=== PATIENT | female | born 1955 ===

== ENCOUNTER 2016-12-13 07:13 | Day surgery (SDC) | payer BC ==
[2016-12-07 09:38] VITALS: BMI 22.3
[2016-12-13] MEDS ORDERED: Propofol 10 mg/ml Inj (20 ML) ONE ×2 (08:33→08:49)
[2016-12-13] MEDS ORDERED: Sodium Chloride 0.9% 1,000 ML IV SCH (09:15)
[2016-12-13 11:55] VITALS: BP 114/84; PULSE 69; RESP 16; TEMP 97.8; O2SAT 100
== END 2016-12-13 12:14 | disposition home or self-care (01) ==
LOC: ENDO 07:13
PROVIDERS: ATTEND Internal Medicine Gastroenterology
DX: Z12.11 Encounter for screening for malignant neoplasm of colon (principal); K63.5 Polyp of colon; K64.4 Residual hemorrhoidal skin tags; K64.8 Other hemorrhoids; I10 Essential (primary) hypertension; E11.9 Type 2 diabetes mellitus without complications; Z79.84 Long term (current) use of oral hypoglycemic drugs
CPT/HCPCS: 45380; 82948; 88305; J2704; J7040 ×2

== ENCOUNTER 2017-04-06 19:29 | Emergency (ER) | payer BC ==
[2017-04-06 19:29] VITALS: BMI 22.3
[2017-04-06 19:57] VITALS: TEMP 99.4
--- NOTE | 2017-04-06 20:23 | ED PDOC ---
Arrival/HPI - General Chief Complaint: Flu-like Symptoms Time Seen by Provider: 04/06/17 20:18 - History of Present Illness Narrative History of Present Illness (Text): 62 y/o F c PMHx bronchitis, DM, HTN, HLD p/w cough x 12 days. Seen by PMD, finished course of Levofloxacin, saw PMD again, on Day 2 now of Z pack. Continues to have symptoms. +rhinorrhea (yellow) and pleuritic chest pain from coughing. Has had to strain a little harder to urinate but denies dysuria. Tmax 101 intermittently. Denies chills, dyspnea, nausea, vomiting, diarrhea, numbness , weakness, rash, recent travel. Past Medical History - Infectious Disease Hx of Infectious Diseases: None - Cardiac Hx Cardiac Disorders: Yes Hx Hypertension: Yes Hx Pacemaker: No - Pulmonary Hx Respiratory Disorders: No - Neurological Hx Neurological Disorder: No Hx Paralysis: No - HEENT Hx HEENT Disorder: Yes Other/Comment: glasses - Renal Hx Renal Disorder: No - Endocrine/Metabolic Hx Endocrine Disorders: Yes Hx Diabetes Mellitus Type 2: Yes (NIDD) - Hematological/Oncological Hx Blood Disorders: No Hx Blood Transfusions: No Hx Blood Transfusion Reaction: No - Integumentary Hx Dermatological Disorder: No - Musculoskeletal/Rheumatological Hx Musculoskeletal Disorders: No - Gastrointestinal Hx Gastrointestinal Disorders: No - Genitourinary/Gynecological Hx Genitourinary Disorders: No - Psychiatric Hx Emotional Abuse: No Hx Physical Abuse: No Hx Substance Use: No - Surgical History Hx Hysterectomy: Yes Other/Comment: 2 lumpectomies - Anesthesia Hx Anesthesia: Yes Hx Anesthesia Reactions: No Hx Malignant Hyperthermia: No - Suicidal Assessment Feels Threatened In Home Enviroment: No Family/Social History Family/Social History: No Known Family HX Smoking Status: Light Smoker < 10 Cigarettes Daily Hx Alcohol Use: No Hx Substance Use: No Allergies/Home Meds Allergies/Adverse Reactions: Allergies aspirin Allergy (Verified 04/06/17 19:52) SWELLING Penicillins Allergy (Verified 04/06/17 19:52) SWELLING BANDAID TAPE Allergy (Uncoded 04/06/17 19:52) RASH Home Medications: Home Meds Medication Instructions Recorded Confirmed Ascorbic Acid [Vitamin C] 1,000 mg PO DAILY 12/07/16 04/06/17 Atorvastatin [Lipitor] 20 mg PO QPM 12/07/16 04/06/17 Candesartan Cilexetil [Atacand] 16 mg PO DAILY 12/07/16 04/06/17 Cholecalciferol (Vitamin D3) 1,000 unit PO DAILY 12/07/16 04/06/17 [Vitamin D3] Colesevelam HCl [Welchol] 3 tab PO BID 12/07/16 04/06/17 Magnesium Oxide [Magnesium] 400 mg PO BID 12/07/16 04/06/17 MetFORMIN [glucOPHAGE] 1,000 mg PO BID 12/07/16 04/06/17 Multivitamin/Iron/Folic Acid 1 tab PO DAILY 12/07/16 04/06/17 [Centrum Women Tablet] Ubidecarenone [Co Q-10] 200 mg PO QPM 12/07/16 04/06/17 [id number] Ethyl Esters 1 GM 1 mg PO DAILY 04/06/17 04/06/17 [Lovaza] Review of Systems - Physician Review All systems were reviewed & negative as marked: Yes - Review of Systems Respiratory: absent: SOB Gastrointestinal: absent: Vomiting Physical Exam - Physical Exam Narrative Physical Exam (Text): Gen: NAD Head: NC/AT, no sinus tenderness. Eyes: PERRL ENT: MMM, no phyarngeal erythema or exudates. Chest: Reproducible tenderness of thoracic chest and back. CV: Regular rate. Lungs: CTA b/l Abd: Soft, nontender, BS X 4 Pelvis: Stable Extremities: No tenderness or swelling Lymph: No adenopathy. Neuro: Alert, no focal deficit Vital Signs Temp Pulse Resp BP Pulse Ox 04/06/17 19:53 99.4 F 104 H 19 119/77 96 Medical Decision Making ED Course and Treatment: CXR to rule out pneumonia Continue antibiotics. Toradol, IVF. 04/06/17 22:49 CXR no consolidation. Will discharge, f/u PMD, return to ED for worsening breathing, pain, fever, or any other problem. - Lab Interpretations Lab Results: 04/06/17 20:40 04/06/17 20:40 Lab Results 04/06/17 20:52: Urine Color Yellow, Urine Appearance Clear, Urine pH 6.0, Ur Specific Harper >= 1.030, Urine Protein Negative, Urine Glucose (UA) Negative, Urine Ketones Trace H, Urine Blood Negative, Urine Nitrate Negative, Urine Bilirubin Negative, Urine Urobilinogen 0.2, Ur Leukocyte Esterase Negative 04/06/17 20:40: Sodium 139, Potassium 4.1, Chloride 107, Carbon Dioxide 24, Anion Gap 13, BUN 13, Creatinine 0.6 L, Est GFR ( Amer) > 60, Est GFR ( Non-Af Amer) > 60, Random Glucose 122 H, Calcium 9.5, Total Bilirubin 0.4, AST 33, ALT 30, Alkaline Phosphatase 53, Total Protein 7.0, Albumin 4.1, Globulin 2.9, Albumin/Globulin Ratio 1.4 04/06/17 20:40: Influenza Typ A,B (EIA) Negative for flu a/b 04/06/17 20:40: WBC 6.9, RBC 4.50, Hgb 14.2, Hct 42.1, MCV 93.6, MCH 31.6, MCHC 33.7, RDW 13.2, Plt Count 173, MPV 9.0, Gran % 60.6, Lymph % (Auto) 20.6 L, [place] % (Auto) 17.7 H, Eos % (Auto) 1.0 L, Baso % (Auto) 0.1, Gran # 4.18, Lymph # 1.4, [place] # 1.2 H, Eos # 0.1, Baso # 0.01 - RAD Interpretation Radiology Orders: 04/06/17 20:24 CHEST TWO VIEWS (PA/LAT) [RAD] Stat - Medication Orders Current Medication Orders: Discontinued Medications Acetaminophen (Tylenol 325mg Tab) 650 mg PO STAT STA Stop: 04/06/17 20:28 Last Admin: 04/06/17 21:12 Dose: 650 mg MAR Pain/Vitals Document 04/06/17 21:12 SS (Rec: 04/06/17 21:12 SS [id number]) Pain Reassessment Is This A Pain ReAssessment? Yes Sleep Is patient sleeping during reassessment? No Presence of Pain Presence of Pain Yes Pain Scale Used Pain Scale Used Numeric Location Pain Location Body Site Back Sodium Chloride (Sodium Chloride 0.9%) 1,000 mls @ 999 mls/hr IV .Q1H1M STA Stop: 04/06/17 21:24 Last Admin: 04/06/17 21:12 Dose: 999 mls/hr eMAR Start Stop Document 04/06/17 21:12 SS (Rec: 04/06/17 21:12 [id number]) Intravenous Solution Start Date 04/06/17 Start Time 21:12 End Date 04/06/17 End time 22:13 Total Infusion Time 61 Disposition/Present on Arrival - Present on Arrival Any Indicators Present on Arrival: No History of DVT/PE: No History of Uncontrolled Diabetes: No Urinary Catheter: No History of Decub. Ulcer: No History Surgical Site Infection Following: None - Disposition Have Diagnosis and Disposition been Completed?: Yes Diagnosis: Influenza-like illness Disposition: HOME/ ROUTINE Disposition Time: 22:45 Patient Plan: Discharge Condition: STABLE Discharge Instructions (ExitCare): Viral Syndrome (ED) Referrals: Jessica Kim MD [Primary Care Provider] - Follow up with primary Forms: [employer] (Green[place]ic)
[2017-04-06] MEDS ORDERED: Sodium Chloride 0.9% 1,000 ML IV STA (20:24)
[2017-04-06 20:52] LABS: BASO # 0.01 K/mm3 (0.0-2.0); BASO % 0.1 % (0.0-3.0); EOS # 0.1 (0.0-0.7); GRAN # 4.18 (1.4-6.5); GRAN % 60.6 % (50.0-68.0); HEMOGLOBIN 14.2 g/dL (12.0-16.0); LYMPH # 1.4 (1.2-3.4); LYMPH % 20.6 % (22.0-35.0); MEAN CELL VOLUME 93.6 fl (80.0-105.0); MEAN CORPUSCULAR HEMOGLOBIN 31.6 pg (25.0-35.0); MEAN CORPUSCULAR HGB CONC 33.7 g/dl (31.0-37.0); MONO # 1.2 (0.1-0.6); MONO % 17.7 % (1.0-6.0); RBC 4.5 10^6/uL (3.5-6.1); RED CELL DISTRIBUTION WIDTH 13.2 % (11.5-14.5); WHITE BLOOD COUNT 6.9 10^3/ul (4.5-11.0)
[2017-04-06 21:01] LABS: ALB/GLOB RATIO 1.4 (1.1-1.8); ALBUMIN 4.1 g/dL (3.0-4.8); ALT/SGPT 30 U/L (7-56); AST/SGOT 33 U/L (14-36); BLOOD UREA NITROGEN 13 mg/dL (7-21); CALCIUM 9.5 mg/dL (8.4-10.5); GFR AFRICAN-AMERICAN > 60; GFR NON-AFRICAN AMERICAN > 60
[2017-04-06 21:16] LABS: URINE BILIRUBIN NEGATIVE (NEGATIVE); URINE BLOOD NEGATIVE (NEGATIVE); URINE GLUCOSE (UA) NEGATIVE (NEGATIVE); URINE LEUKOCYTE ESTERASE NEGATIVE Leu/uL (NEGATIVE); URINE NITRATE NEGATIVE (NEGATIVE); URINE PROTEIN NEGATIVE mg/dL (<30 mg/dL); URINE UROBILINOGEN 0.2 E.U./dL (<1 E.U./dL)
[2017-04-06 21:18] LABS: URINE APPEARANCE CLEAR (CLEAR); URINE COLOR YELLOW (YELLOW)
[2017-04-07 00:04] VITALS: BP 138/80; PULSE 80; RESP 18; O2SAT 98
--- NOTE | 2017-04-07 10:04 | RAD ---
HISTORY: cough COMPARISON: No prior. TECHNIQUE: Chest PA and lateral FINDINGS: LUNGS: No active pulmonary disease. PLEURA: No significant pleural effusion identified. No pneumothorax apparent. CARDIOVASCULAR: Normal. OSSEOUS STRUCTURES: No significant abnormalities. VISUALIZED UPPER ABDOMEN: Normal. OTHER FINDINGS: None. IMPRESSION: No active disease.
== END 2017-04-07 00:05 | disposition home or self-care (01) ==
LOC: ED 19:29
DX: J11.1 Influenza due to unidentified influenza virus with other respiratory manifestations (principal); E11.9 Type 2 diabetes mellitus without complications; E78.5 Hyperlipidemia, unspecified; I10 Essential (primary) hypertension; F17.210 Nicotine dependence, cigarettes, uncomplicated
CPT/HCPCS: 71046; 80053; 81003; 85025; 87086; 87804; 96360; 99283; J7040